=== PATIENT | female | born 1935 ===

== ENCOUNTER 2019-10-27 10:49 | Observation (INO) | payer MEDICARE, OTHER ==
[~2019-10-27] VITALS: Ht 160 cm; Wt 63.6 kg
[2019-10-27] MEDS ORDERED: MULT-464 PO (12:14)
[2019-10-27] MEDS ORDERED: DILT60TA30 PO (12:14)
[2019-10-27] MEDS ORDERED: CALC-534 PO (12:14)
[2019-10-27] MEDS ORDERED: ACET325C6 PO (12:14)
[2019-10-27] MEDS ORDERED: MONT10TA11 PO (12:14)
[2019-10-27] MEDS ORDERED: GABA300C PO (12:14)
[2019-10-27] MEDS ORDERED: APIX5TAB PO (12:14)
[2019-10-27] MEDS ORDERED: TIOT18CA INH (12:14)
[2019-10-27] MEDS ORDERED: BECL10.62 INH (12:14)
[2019-10-27] MEDS ORDERED: CETI10TA18 PO (12:14)
[2019-10-27] MEDS ORDERED: FLUT9.9S INH (12:21)
[2019-10-27] MEDS: SODIUM CHLORIDE 0.9% 1,000 ML IV SCH ×2 (12:32→20:25)
[2019-10-27 12:47] VITALS: BP 155/73
[2019-10-27] MEDS ORDERED: VANCOMYCIN PMX 1GM/200ML 200 ML IVPB SCH (13:00)
[2019-10-27] MEDS ORDERED: VANCOMYCIN PMX 1GM/200ML 200 ML ONE (13:20)
[2019-10-27] MEDS ORDERED: VANCOMYCIN 500 MG ONE (13:20)
[2019-10-27] MEDS ORDERED: LIDOCAINE 1%, 20ML ONE ×2 (13:20→15:17)
[2019-10-27] MEDS ORDERED: FENTANYL PF 250 MCG/5ML ONE (13:25)
[2019-10-27] MEDS ORDERED: DEXAMETHASONE 4 MG/ML, 1ML ONE ×2 (13:25→13:29)
[2019-10-27 13:28] LABS: BASOPHILS # (AUTO) 0.09 x10^3/uL (0-0.1); BASOPHILS % (AUTO) 1 % (0-1); EOSINOPHILS # (AUTO) 0.15 x10^3/uL (0-0.4); EOSINOPHILS % (AUTO) 2 % (1-7); LYMPHOCYTES % (AUTO) 24 % (22-44); MD NO; MEAN CORPUSCULAR HGB CONC 32.1 g/dL (32.4-35.8); MEAN CORPUSCULAR VOLUME 84.2 fL (80-100); MEAN PLATELET VOLUME 7.7 fL (7.4-10.4); MONOCYTES # (AUTO) 0.76 x10^3/uL (0.2-0.8); MONOCYTES % (AUTO) 10 % (2-9); NEUTROPHILS # (AUTO) 4.95 x10^3/uL (1.8-6.8); NEUTROPHILS % (AUTO) 63 % (42-75); PLATELET COUNT 542 x10^3/uL (130-400); RED BLOOD COUNT 4.22 x10^6/uL (3.82-5.3)
[2019-10-27] MEDS ORDERED: EPHEDRINE 50 MG/ML, 1ML ONE (13:29)
[2019-10-27 13:35] LABS: INTERNATIONAL NORMALIZED RATIO 0.94 (0.93-1.1)
[2019-10-27 13:38] LABS: ANION GAP 7 mmol/L (5-15); CALCIUM 9.1 mg/dL (8.5-10.1); CHLORIDE 101 mmol/L (98-107); CREATININE 0.72 mg/dL (0.55-1.02)
[2019-10-27] MEDS ORDERED: ONDANSETRON 2MG/ML, 2ML ONE (14:57)
[2019-10-27] MEDS ORDERED: PROPOFOL 10 MG/ML, 20ML ONE (14:57)
[2019-10-27] MEDS ORDERED: ROCURONIUM 10MG/ML,5ML ONE (14:57)
[2019-10-27] MEDS ORDERED: SUCCINYLCHOLINE 20 MG/ML, 10ML ONE (14:57)
[2019-10-27] MEDS ORDERED: SUGAMMADEX 200 MG/2 ML IVPush ONE (14:57)
[2019-10-27] MEDS ORDERED: hydrALAzine 20 MG/ML, 1ML IV PRN (16:00)
[2019-10-27] MEDS ORDERED: PROMETHAZINE 25 MG/ML, 1ML IVPush PRN (16:00)
[2019-10-27] MEDS ORDERED: ALBUTEROL SULFATE 2.5 MG/3 ML NPPB PRN (16:00)
[2019-10-27] MEDS ORDERED: DIAZEPAM 5 MG/ML, 2ML IVPush PRN (16:00)
[2019-10-27] MEDS ORDERED: EPHEDRINE 50 MG/ML, 1ML IVPush PRN (16:00)
[2019-10-27] MEDS ORDERED: HYDROcodone/APAP 5/325 TABLET PO PRN (16:00)
[2019-10-27] MEDS ORDERED: MIDAZOLAM 1 MG/ML, 2ML IV PRN (16:00)
[2019-10-27] MEDS ORDERED: MEPERIDINE/PF 25MG/0.5ML IVPush PRN (16:00)
[2019-10-27] MEDS ORDERED: Hold all anticoagulants for 24 hours MC PRN (16:00)
[2019-10-27] MEDS ORDERED: DIPHENHYDRAMINE 50 MG/ML, 1ML IVPush PRN (16:00)
[2019-10-27] MEDS ORDERED: LABETALOL 5MG/ML, 20ML IV PRN (16:00)
[2019-10-27] MEDS ORDERED: FENTANYL PF 100 MCG/2ML IV PRN (16:00)
[2019-10-27] MEDS ORDERED: HYDROmorphone 1 MG/ML, 1ML INJ IVPush PRN (16:00)
[2019-10-27] MEDS ORDERED: OXYcodone 5 MG/5 ML ORAL.SOL UDC PO PRN (16:00)
[2019-10-27] MEDS ORDERED: PROMETHAZINE 12.5 MG SUPP PR PRN (16:00)
[2019-10-27] MEDS ORDERED: ACETAMINOPHEN 325 MG TABLET PO PRN ×2 (16:00)
[2019-10-27] MEDS ORDERED: ONDANSETRON 2MG/ML, 2ML IVPush PRN (16:00)
[2019-10-27 20:25] VITALS: BP 116/86
[2019-10-27] MEDS ORDERED: GABAPENTIN 300 MG CAPSULE PO SCH (21:00)
[2019-10-27] MEDS ORDERED: SODIUM CHLORIDE FLUSH 10ML SYR IVF SCH (21:00)
[2019-10-27] MEDS ORDERED: MONTELUKAST 10 MG TABLET PO SCH (21:00)
[2019-10-28] MEDS ORDERED: ACETAMINOPHEN 325 MG TABLET ONE (00:33)
[2019-10-28 00:37] VITALS: BP 128/69
[2019-10-28 07:42] VITALS: BP 144/69
[2019-10-28] MEDS ORDERED: GABAPENTIN 300 MG CAPSULE PO SCH (09:00)
[2019-10-28] MEDS ORDERED: TIOTROPIUM BROMIDE 18 MCG/INH INH SCH ×2 (09:00)
[2019-10-28] MEDS ORDERED: ACETAMINOPHEN 325 MG TABLET PO PRN (09:00)
[2019-10-28] MEDS ORDERED: DILTIAZEM CD 180 MG CAP.ER.24H PO SCH ×2 (09:00)
[2019-10-28] MEDS ORDERED: SODIUM CHLORIDE FLUSH 10ML SYR IVF SCH (09:00)
[2019-10-28] MEDS ORDERED: HYDROcodone/APAP 5/325 TABLET PO PRN (09:00)
[2019-10-28] MEDS ORDERED: MONTELUKAST 10 MG TABLET PO SCH (21:00)
== END 2019-10-28 09:35 | disposition home or self-care (01) ==
LOC: CACL 10:49 → EDSTATUS 13:00 → 5SO 16:48 → CACL 16:48 → 5SO 16:48 → DCLOUNGE 10-28 09:25
PROVIDERS: ADMIT Internal Medicine Clinical Cardiac Electrophysiology; ATTEND Internal Medicine Clinical Cardiac Electrophysiology
DX: I48.21 Permanent atrial fibrillation (principal); I44.2 Atrioventricular block, complete; J44.9 Chronic obstructive pulmonary disease, unspecified; I10 Essential (primary) hypertension; F10.10 Alcohol abuse, uncomplicated; Z79.899 Other long term (current) drug therapy; Z03.818 Encounter for observation for suspected exposure to other biological agents ruled out; Z79.01 Long term (current) use of anticoagulants
CPT/HCPCS: 33208; 33225; C1769; C1779; C1887; C1892; C1894; C1900; C2621; G0378; J0330; J1100; J2405; J2704; J3010; J3370; J3490; Q9967; 36415; 71045; 71046; 80048; 85025; 85610; 87635; 93005

== ENCOUNTER 2019-10-29 08:52 | Inpatient (IN) | payer MEDICARE, OTHER ==
[~2019-10-29] VITALS: Ht 160 cm; Wt 65.5 kg
[~2019-10-29 08:52] MED LIST: ACET325C6 PO; APIX5TAB PO; BECL10.62 INH; CALC-534 PO; CETI10TA18 PO; DILT60TA30 PO; FLUT9.9S INH; GABA300C PO; MONT10TA11 PO; MULT-464 PO; TIOT18CA INH
--- NOTE | 2019-10-29 08:54 | NUR ---
Code Neuro called @ 0846 Neurology called @ 0848 Addendum: 10/29/19 at 0901 by FADI Neurology called back @ 0850
[2019-10-29] MEDS ORDERED: SODIUM CHLORIDE FLUSH 10ML SYR IVF ONE (09:00)
--- NOTE | 2019-10-29 09:19 | NUR ---
BIB Ambulance from home-Pt c/o L UE and L LE weakness since [address] Russell at bedside to evaluate pt. Pt A&Ox4, denies pain. 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 Pt states hx a.fib, taking Elliquis. Pt placed in gown, positioned for comfort in bed with warm blanket. Continuous heart, oxygen and BP Monitors applied, all safety measures observed.
--- NOTE | 2019-10-29 09:20 | NUR ---
neurology is at the bedside for assessment
--- NOTE | 2019-10-29 09:34 | NUR ---
i am assuming care of this pt from rian (rn) a this time. sbar report was exchanged at the bedside.
[2019-10-29 09:35] LABS: MEAN CORPUSCULAR HEMOGLOBIN 26.9 pg (27.0-34.8); MEAN CORPUSCULAR HGB CONC 31.2 g/dL (32.4-35.8); MEAN PLATELET VOLUME 7.3 fL (7.4-10.4); PLATELET COUNT 480 x10^3/uL (130-400); RED BLOOD COUNT 3.92 x10^6/uL (3.82-5.3); RED CELL DISTRIBUTION WIDTH 16.7 % (9.6-15.2)
[2019-10-29 09:40] LABS: INTERNATIONAL NORMALIZED RATIO 0.94 (0.93-1.1)
[2019-10-29 09:41] LABS: ALBUMIN 3.5 g/dL (3.4-5.0); ANION GAP 6 mmol/L (5-15); CALCIUM 10.7 mg/dL (8.5-10.1); CHLORIDE 101 mmol/L (98-107); CREATININE 0.76 mg/dL (0.55-1.02)
[2019-10-29 09:45] LABS: TROPONIN I < 0.015 ng/mL (0.000-0.045)
[2019-10-29 10:06] LABS: BASOPHILS # (AUTO) 0.07 x10^3/uL (0-0.1); BASOPHILS % (AUTO) 1 % (0-1); EOSINOPHILS # (AUTO) 0.07 x10^3/uL (0-0.4); EOSINOPHILS % (AUTO) 1 % (1-7); LYMPHOCYTES % (AUTO) 22 % (22-44); MD SCAN; MONOCYTES # (AUTO) 1.12 x10^3/uL (0.2-0.8); MONOCYTES % (AUTO) 10 % (2-9); NEUTROPHILS # (AUTO) 7.85 x10^3/uL (1.8-6.8); NEUTROPHILS % (AUTO) 68 % (42-75)
[2019-10-29] MEDS ORDERED: SODIUM CHLORIDE FLUSH 10ML SYR IVF PRN (10:30)
--- NOTE | 2019-10-29 11:00 | NUR ---
TASK RN: MINI CATH FOR URINE SPECIMAN PERFORMED AFTER EXPLAINING PROCEDURE TO PT. PT MAY WELL. PURE WICK IN PLACE.
--- NOTE | 2019-10-29 11:09 | NUR ---
verbal sbar exchanged madison tyler (emily) ion the med tele floor. we will begin to prepare for transport at this time.
[2019-10-29 11:15] LABS: MICROSCOPIC NOT IND
--- NOTE | 2019-10-29 11:17 | NUR ---
hospitalist is at the bedside for consult
[2019-10-29] MEDS ORDERED: LABETALOL 5MG/ML, 20ML IV PRN (12:00)
[2019-10-29] MEDS ORDERED: DOCUSATE 100 MG CAPSULE PO PRN (12:00)
[2019-10-29] MEDS ORDERED: ONDANSETRON 4 MG TABLET PO PRN (12:00)
[2019-10-29 12:07] VITALS: BP 156/84
[2019-10-29 12:17] VITALS: BP 156/84
[2019-10-29] MEDS: APIXABAN 5 MG TABLET PO SCH ×2 (12:48→20:36)
[2019-10-29 14:35] VITALS: BP 152/82
[2019-10-29 19:00] VITALS: BP 117/74
[2019-10-29] MEDS: ATORVASTATIN 80 MG TABLET PO SCH (20:36)
[2019-10-29] MEDS: GABAPENTIN 300 MG CAPSULE PO SCH (20:36)
[2019-10-29] MEDS: MONTELUKAST 10 MG TABLET PO SCH (20:36)
[2019-10-29] MEDS ORDERED: BECLOMETHASONE DIPROPIONATE INH SCH (21:00)
[2019-10-29] MEDS ORDERED: OMNIPAQUE 350 MG/ML, 100ML BOTTLE ONE (21:38)
[2019-10-29] MEDS: ONDANSETRON 2MG/ML, 2ML IVPush PRN (21:47)
[2019-10-29 22:11] VITALS: BP 152/81
[2019-10-30] VITALS (8 sets, daily range): BP systolic 114–138; BP diastolic 63–81
[2019-10-30 06:24] LABS: BASOPHILS # (AUTO) 0.01 x10^3/uL (0-0.1); BASOPHILS % (AUTO) 0 % (0-1); EOSINOPHILS % (AUTO) 2 % (1-7); LYMPHOCYTES # (AUTO) 1.12 x10^3/uL (1-3.4); LYMPHOCYTES % (AUTO) 10 % (22-44); MD NO; MEAN CORPUSCULAR HEMOGLOBIN 27.3 pg (27.0-34.8); MEAN CORPUSCULAR HGB CONC 32.1 g/dL (32.4-35.8); MEAN PLATELET VOLUME 7.6 fL (7.4-10.4); MONOCYTES # (AUTO) 0.94 x10^3/uL (0.2-0.8); MONOCYTES % (AUTO) 8 % (2-9); NEUTROPHILS # (AUTO) 8.92 x10^3/uL (1.8-6.8); NEUTROPHILS % (AUTO) 80 % (42-75); PLATELET COUNT 426 x10^3/uL (130-400); RED BLOOD COUNT 3.84 x10^6/uL (3.82-5.3); RED CELL DISTRIBUTION WIDTH 17.1 % (9.6-15.2)
[2019-10-30 06:26] LABS: ALBUMIN 2.9 g/dL (3.4-5.0); CALCIUM 7.8 mg/dL (8.5-10.1); CHLORIDE 97 mmol/L (98-107)
[2019-10-30 06:32] LABS: ALANINE AMINOTRANSFERASE 31 U/L (12-78); ALKALINE PHOSPHATASE 118 U/L (45-117); BILIRUBIN,TOTAL 0.4 mg/dL (0.2-1.0); CHOL/HDL RATIO 2.3; CHOLESTEROL, TOTAL 198 mg/dL (140-239); CREATININE 0.66 mg/dL (0.55-1.02); HDL CHOL % 44 % (28-40); HDL CHOLESTEROL (DIRECT) 88 mg/dL (40-60); LDL CHOLESTEROL,CALCULATED 95 mg/dL (54-169); LDL/HDL RATIO 1.1 (0.5-3.0); TOTAL PROTEIN 6.6 g/dL (6.4-8.2); TRIGLYCERIDES 76 mg/dL (50-200); VLDL CHOLESTEROL 15 mg/dL (0-25)
[2019-10-30 07:13] LABS: ANION GAP 9 mmol/L (5-15)
[2019-10-30] MEDS ORDERED: BISACODYL 10 MG SUPP PR PRN (08:30)
[2019-10-30] MEDS ORDERED: POLYETHYLENE GLYCOL 17 GM PACKET PO PRN (08:30)
[2019-10-30] MEDS: ONDANSETRON 2MG/ML, 2ML IVPush PRN (08:47)
[2019-10-30] MEDS ORDERED: ASPIRIN 81 MG TABLET CHEW PO/NG SCH (09:00)
[2019-10-30] MEDS ORDERED: CALCIUM/VITAMIN D3 250-125 TABLET PO SCH (09:00)
[2019-10-30] MEDS: CETIRIZINE 10 MG TABLET PO SCH (09:39)
[2019-10-30] MEDS: SENNA/DOCUSATE TABLET PO SCH (09:39)
[2019-10-30] MEDS: GABAPENTIN 300 MG CAPSULE PO SCH ×2 (09:39→21:36)
[2019-10-30] MEDS: APIXABAN 5 MG TABLET PO SCH ×2 (09:39→21:36)
[2019-10-30] MEDS: MULTIVITAMINS/MINERALS TABLET PO SCH (09:40)
[2019-10-30] MEDS: DILTIAZEM CD 180 MG CAP.ER.24H PO SCH (09:40)
[2019-10-30] MEDS: CALCIUM/VITAMIN D3 250-125 TABLET PO SCH (10:56)
[2019-10-30] MEDS: TIOTROPIUM BROMIDE 18 MCG/INH INH SCH (10:57)
[2019-10-30] MEDS: FLUTICASONE FUROATE 100MCG/INH INH SCH (10:57)
[2019-10-30] MEDS: FLUTICASONE NASAL SPRAY 16GM NAS SCH (10:59)
[2019-10-30] MEDS: MONTELUKAST 10 MG TABLET PO SCH (21:36)
[2019-10-30] MEDS: ATORVASTATIN 80 MG TABLET PO SCH (21:36)
[2019-10-31 00:27] VITALS: BP 111/54
[2019-10-31] MEDS: ACETAMINOPHEN 650 MG/20.3 ML UDC PO PRN ×2 (04:02→20:04)
[2019-10-31 05:00] LABS: BASOPHILS # (AUTO) 0.01 x10^3/uL (0-0.1); BASOPHILS % (AUTO) 0 % (0-1); EOSINOPHILS # (AUTO) 0.29 x10^3/uL (0-0.4); EOSINOPHILS % (AUTO) 3 % (1-7); LYMPHOCYTES # (AUTO) 2.15 x10^3/uL (1-3.4); LYMPHOCYTES % (AUTO) 23 % (22-44); MD NO; MEAN CORPUSCULAR HEMOGLOBIN 27.4 pg (27.0-34.8); MEAN CORPUSCULAR HGB CONC 32.4 g/dL (32.4-35.8); MEAN PLATELET VOLUME 7.4 fL (7.4-10.4); MONOCYTES # (AUTO) 1.13 x10^3/uL (0.2-0.8); MONOCYTES % (AUTO) 12 % (2-9); NEUTROPHILS # (AUTO) 5.89 x10^3/uL (1.8-6.8); NEUTROPHILS % (AUTO) 62 % (42-75); PLATELET COUNT 411 x10^3/uL (130-400); RED CELL DISTRIBUTION WIDTH 16.8 % (9.6-15.2)
[2019-10-31 05:10] LABS: ANION GAP 3 mmol/L (5-15); CALCIUM 8.3 mg/dL (8.5-10.1); CHLORIDE 102 mmol/L (98-107)
[2019-10-31 06:27] VITALS: BP 133/67
[2019-10-31] MEDS: TIOTROPIUM BROMIDE 18 MCG/INH INH SCH (08:45)
[2019-10-31] MEDS: SENNA/DOCUSATE TABLET PO SCH (08:46)
[2019-10-31] MEDS: DILTIAZEM CD 180 MG CAP.ER.24H PO SCH (08:46)
[2019-10-31] MEDS: CALCIUM/VITAMIN D3 250-125 TABLET PO SCH (08:46)
[2019-10-31] MEDS: FLUTICASONE FUROATE 100MCG/INH INH SCH (08:46)
[2019-10-31] MEDS: FLUTICASONE NASAL SPRAY 16GM NAS SCH (08:46)
[2019-10-31] MEDS: GABAPENTIN 300 MG CAPSULE PO SCH ×2 (08:46→20:04)
[2019-10-31] MEDS: MULTIVITAMINS/MINERALS TABLET PO SCH (08:46)
[2019-10-31] MEDS: APIXABAN 5 MG TABLET PO SCH ×2 (08:46→20:04)
[2019-10-31] MEDS: CETIRIZINE 10 MG TABLET PO SCH (08:47)
[2019-10-31] MEDS: CHOLECALCIFEROL 5,000u TAB PO SCH (08:47)
[2019-10-31] MEDS ORDERED: MAGNESIUM SULFATE/D5W 100 ML IV ONE (09:30)
[2019-10-31] MEDS ORDERED: POTASSIUM CHLORIDE 20 MEQ TAB.ER.PRT PO ONE (09:30)
[2019-10-31 15:01] VITALS: BP 149/77
[2019-10-31 20:00] VITALS: BP 122/71
[2019-10-31] MEDS: ATORVASTATIN 80 MG TABLET PO SCH (20:04)
[2019-10-31] MEDS: MONTELUKAST 10 MG TABLET PO SCH (20:04)
[2019-11-01] MEDS: ACETAMINOPHEN 650 MG/20.3 ML UDC PO PRN (01:30)
[2019-11-01] MEDS: DIPHENHYDRAMINE/ZINC CRM 2%, 30GM TP PRN ×2 (01:30→09:26)
[2019-11-01 01:37] VITALS: BP 115/75
[2019-11-01 05:59] LABS: ANION GAP 4 mmol/L (5-15); CALCIUM 8.4 mg/dL (8.5-10.1); CHLORIDE 104 mmol/L (98-107); CREATININE 0.61 mg/dL (0.55-1.02)
[2019-11-01 07:16] VITALS: BP 137/75
[2019-11-01] MEDS: FLUTICASONE NASAL SPRAY 16GM NAS SCH (07:53)
[2019-11-01] MEDS: MULTIVITAMINS/MINERALS TABLET PO SCH (07:53)
[2019-11-01] MEDS: DILTIAZEM CD 180 MG CAP.ER.24H PO SCH (07:53)
[2019-11-01] MEDS: GABAPENTIN 300 MG CAPSULE PO SCH (07:53)
[2019-11-01] MEDS: FLUTICASONE FUROATE 100MCG/INH INH SCH (07:53)
[2019-11-01] MEDS: TIOTROPIUM BROMIDE 18 MCG/INH INH SCH (07:53)
[2019-11-01] MEDS: CALCIUM/VITAMIN D3 250-125 TABLET PO SCH (07:54)
[2019-11-01] MEDS: CETIRIZINE 10 MG TABLET PO SCH (07:54)
[2019-11-01] MEDS: SENNA/DOCUSATE TABLET PO SCH (07:54)
[2019-11-01] MEDS: CHOLECALCIFEROL 5,000u TAB PO SCH (07:54)
[2019-11-01] MEDS: APIXABAN 5 MG TABLET PO SCH (07:54)
[2019-11-01 12:46] VITALS: BP 121/65
[2019-11-01] MEDS ORDERED: CALC1TAB68 PO (13:53)
== END 2019-11-01 15:42 | disposition home health service (06) | DRG 65 ==
LOC: ED 09:23 → EDIP 10:15 → 4WST 12:04 → DCLOUNGE 11-01 15:33
PROVIDERS: ADMIT Hospitalist; ATTEND Hospitalist
PROC: 0T9B70Z Drainage of Bladder with Drainage Device, Via Natural or Artificial Opening (ICD-10-PCS; principal; 2019-10-29)
DX: I63.9 Cerebral infarction, unspecified (principal); G81.94 Hemiplegia, unspecified affecting left nondominant side; J96.11 Chronic respiratory failure with hypoxia; E87.1 Hypo-osmolality and hyponatremia; D68.59 Other primary thrombophilia; J44.9 Chronic obstructive pulmonary disease, unspecified; I48.91 Unspecified atrial fibrillation; H70.92 Unspecified mastoiditis, left ear; E83.52 Hypercalcemia; I70.0 Atherosclerosis of aorta; K59.00 Constipation, unspecified; Z79.01 Long term (current) use of anticoagulants; Z82.3 Family history of stroke; Z87.891 Personal history of nicotine dependence; Z88.2 Allergy status to sulfonamides; R29.701 NIHSS score 1; Z90.710 Acquired absence of both cervix and uterus; Z95.0 Presence of cardiac pacemaker; Z88.0 Allergy status to penicillin; Z90.49 Acquired absence of other specified parts of digestive tract; Z90.89 Acquired absence of other organs; J30.9 Allergic rhinitis, unspecified; Z72.89 Other problems related to lifestyle; Z88.1 Allergy status to other antibiotic agents; Z88.8 Allergy status to other drugs, medicaments and biological substances
CPT/HCPCS: 33208; 33225; 36415; 70450; 70496; 70498; 71045; 71046; 74018; 80048; 80053; 80061; 81003; 82040; 82306; 82330; 83735; 83970; 84100; 84443; 84484; 85025; 85610; 85730; 87635; 93005; 93306; 96374; 99285; C1769; C1779; C1887; C1892; C1894; C2621; G0378; J1100; J2405; J2704; J3010; J3370; Q9967; 92523-GN; C1900; J0330

== ENCOUNTER 2019-12-03 09:03 | Observation (INO) | payer MEDICARE, OTHER ==
[~2019-12-03] VITALS: Ht 160 cm; Wt 64.3 kg
[~2019-12-03 09:03] MED LIST changes: +CALC1TAB68 PO
[2019-12-03] MEDS ORDERED: LIDOCAINE 2%, 20ML ONE (10:08)
[2019-12-03] MEDS ORDERED: FENTANYL PF 100 MCG/2ML ONE (10:08)
[2019-12-03] MEDS ORDERED: MIDAZOLAM 1 MG/ML, 5ML ONE (10:08)
[2019-12-03] MEDS ORDERED: VANCOMYCIN PMX 1GM/200ML 200 ML ONE (10:09)
[2019-12-03] MEDS ORDERED: VANCOMYCIN 500 MG ONE (10:09)
[2019-12-03] MEDS ORDERED: SODIUM CHLORIDE 0.9% 1,000 ML IV SCH (10:10)
[2019-12-03] MEDS ORDERED: FLUT1AER INH (10:27)
[2019-12-03 10:30] VITALS: BP 150/76
[2019-12-03 10:55] LABS: ANION GAP 6 mmol/L (5-15); CALCIUM 9.4 mg/dL (8.5-10.1); CHLORIDE 104 mmol/L (98-107)
[2019-12-03 10:57] LABS: CREATININE 0.74 mg/dL (0.55-1.02)
[2019-12-03 11:00] LABS: BASOPHILS # (AUTO) 0.05 x10^3/uL (0-0.1); BASOPHILS % (AUTO) 1 % (0-1); EOSINOPHILS # (AUTO) 0.13 x10^3/uL (0-0.4); EOSINOPHILS % (AUTO) 2 % (1-7); LYMPHOCYTES # (AUTO) 1.49 x10^3/uL (1-3.4); LYMPHOCYTES % (AUTO) 20 % (22-44); MD NO; MEAN CORPUSCULAR HEMOGLOBIN 26.6 pg (27.0-34.8); MEAN CORPUSCULAR HGB CONC 31.2 g/dL (32.4-35.8); MEAN CORPUSCULAR VOLUME 85.3 fL (80-100); MEAN PLATELET VOLUME 7.3 fL (7.4-10.4); MONOCYTES # (AUTO) 0.59 x10^3/uL (0.2-0.8); MONOCYTES % (AUTO) 8 % (2-9); NEUTROPHILS # (AUTO) 5.04 x10^3/uL (1.8-6.8); NEUTROPHILS % (AUTO) 69 % (42-75); PLATELET COUNT 451 x10^3/uL (130-400); RED BLOOD COUNT 4.08 x10^6/uL (3.82-5.3); RED CELL DISTRIBUTION WIDTH 18.4 % (9.6-15.2)
[2019-12-03] MEDS ORDERED: HOLD MEDICATION MC PRN (12:30)
[2019-12-03] MEDS ORDERED: FUROSEMIDE 40 MG/4 ML ONE (12:38)
[2019-12-03] MEDS ORDERED: ALBU18HF INH (12:58)
[2019-12-03] MEDS: ALBUTEROL HFA 90 MCG/SPRAY INH PRN ×2 (13:10→20:38)
[2019-12-03] MEDS ORDERED: ACETAMINOPHEN 325 MG TABLET ONE (13:16)
[2019-12-03 19:51] VITALS: BP 130/69
[2019-12-03] MEDS ORDERED: GABAPENTIN 300 MG CAPSULE PO SCH (21:00)
[2019-12-03] MEDS ORDERED: MONTELUKAST 10 MG TABLET PO SCH (21:00)
[2019-12-03] MEDS ORDERED: SODIUM CHLORIDE FLUSH 10ML SYR IVF SCH (21:00)
[2019-12-04 00:50] VITALS: BP 139/78
[2019-12-04 07:45] VITALS: BP 135/75
[2019-12-04 07:55] VITALS: BP 123/70
[2019-12-04] MEDS ORDERED: TIOTROPIUM BROMIDE 18 MCG/INH INH SCH (09:00)
[2019-12-04] MEDS ORDERED: DILTIAZEM CD 180 MG CAP.ER.24H PO SCH (09:00)
[2019-12-04] MEDS ORDERED: FLUTICASONE/VILANTEROL 100-25MCG/INH INH SCH (09:00)
[2019-12-04] MEDS ORDERED: APIXABAN 5 MG TABLET PO SCH (12:00)
== END 2019-12-04 18:22 | disposition home or self-care (01) ==
LOC: CACL 09:03 → ORIP 12:27 → 5SO 16:58
PROVIDERS: ADMIT Internal Medicine Clinical Cardiac Electrophysiology; ATTEND Internal Medicine Clinical Cardiac Electrophysiology
DX: I48.21 Permanent atrial fibrillation (principal); T82.110A Breakdown (mechanical) of cardiac electrode, initial encounter; J44.9 Chronic obstructive pulmonary disease, unspecified; I10 Essential (primary) hypertension; Z79.899 Other long term (current) drug therapy; Z79.01 Long term (current) use of anticoagulants; Z88.0 Allergy status to penicillin; Z88.2 Allergy status to sulfonamides
CPT/HCPCS: 33215; 36415; 71045; 80048; 85025; 99156; 99157; G0378; J1940; J2250; J3010; J3370; J3490

== ENCOUNTER 2020-02-23 08:34 | Observation (INO) | payer MEDICARE, OTHER ==
[~2020-02-23] VITALS: Ht 160 cm; Wt 61.4 kg
[~2020-02-23 08:34] MED LIST changes: +ALBU18HF INH; +FLUT1AER INH
[2020-02-23] MEDS ORDERED: SODIUM CHLORIDE 0.9% 1,000 ML IV SCH (09:00)
[2020-02-23] MEDS ORDERED: FENTANYL PF 100 MCG/2ML ONE (09:14)
[2020-02-23] MEDS ORDERED: MIDAZOLAM 1 MG/ML, 2ML ONE (09:14)
[2020-02-23] MEDS ORDERED: LIDOCAINE 1%, 20ML ONE (09:14)
[2020-02-23 09:19] VITALS: BP 136/71
[2020-02-23 09:23] LABS: BASOPHILS % (AUTO) 1 % (0-1); EOSINOPHILS % (AUTO) 1 % (1-7); LYMPHOCYTES % (AUTO) 13 % (22-44); MEAN CORPUSCULAR HEMOGLOBIN 24.9 pg (27.0-34.8); MEAN CORPUSCULAR HGB CONC 31.8 g/dL (32.4-35.8); MONOCYTES % (AUTO) 13 % (2-9); NEUTROPHILS % (AUTO) 73 % (42-75); PLATELET COUNT 587 x10^3/uL (130-400); RED BLOOD COUNT 3.84 x10^6/uL (3.82-5.3); RED CELL DISTRIBUTION WIDTH 17.5 % (9.6-15.2)
[2020-02-23 09:24] LABS: MD NO
[2020-02-23] MEDS ORDERED: estradiol (09:25)
[2020-02-23] MEDS ORDERED: FURO20TA3 PO (09:25)
[2020-02-23] MEDS ORDERED: POTA10TA6 PO (09:25)
[2020-02-23 09:34] LABS: ANION GAP 10 mmol/L (5-15); CALCIUM 9.2 mg/dL (8.5-10.1); CHLORIDE 105 mmol/L (98-107)
[2020-02-23 11:00] VITALS: BP 119/66
[2020-02-23] MEDS ORDERED: ONDANSETRON 2MG/ML, 2ML IVPush PRN (11:00)
[2020-02-23] MEDS ORDERED: ALBUTEROL HFA 90 MCG/SPRAY INH PRN (11:00)
[2020-02-23 13:20] VITALS: BP 118/78
[2020-02-23] MEDS: APIXABAN 5 MG TABLET PO SCH ×2 (13:47→20:47)
[2020-02-23] MEDS ORDERED: ACETAMINOPHEN 325 MG TABLET PO PRN (16:00)
[2020-02-23 18:51] VITALS: BP 116/69
[2020-02-23] MEDS: GABAPENTIN 300 MG CAPSULE PO SCH (20:47)
[2020-02-23] MEDS ORDERED: MONTELUKAST 10 MG TABLET PO SCH (21:00)
[2020-02-24] MEDS ORDERED: ALBUTEROL HFA 90 MCG/SPRAY INH PRN (01:00)
[2020-02-24 01:11] VITALS: BP 135/74
[2020-02-24 06:58] VITALS: BP 117/65
[2020-02-24] MEDS: FUROSEMIDE 20 MG TABLET PO SCH ×2 (09:00→10:28)
[2020-02-24] MEDS ORDERED: POTASSIUM CHLORIDE 10 MEQ TABLET.ER PO SCH (09:00)
[2020-02-24] MEDS ORDERED: DILTIAZEM CD 180 MG CAP.ER.24H PO SCH (09:00)
[2020-02-24] MEDS ORDERED: CETIRIZINE 10 MG TABLET PO SCH (09:00)
[2020-02-24] MEDS ORDERED: FUROSEMIDE 20 MG/2 ML IV ONE (09:00)
[2020-02-24] MEDS ORDERED: FLUTICASONE/VILANTEROL 100-25MCG/INH INH SCH (09:00)
[2020-02-24] MEDS ORDERED: TIOTROPIUM BROMIDE 18 MCG/INH INH SCH (09:00)
[2020-02-24] MEDS: GABAPENTIN 300 MG CAPSULE PO SCH (09:38)
[2020-02-24] MEDS: APIXABAN 5 MG TABLET PO SCH (09:38)
[2020-02-24] MEDS ORDERED: FURO20TA3 PO (10:26)
== END 2020-02-24 12:15 | disposition home or self-care (01) ==
LOC: CACL 08:34 → ORIP 10:58 → 5SO 10:59 → CACL 11:04 → 5SO 12:09 → DCLOUNGE 02-24 12:09
PROVIDERS: ADMIT Internal Medicine Clinical Cardiac Electrophysiology; ATTEND Internal Medicine Clinical Cardiac Electrophysiology
DX: I48.21 Permanent atrial fibrillation (principal); T82.110A Breakdown (mechanical) of cardiac electrode, initial encounter; I10 Essential (primary) hypertension; J44.9 Chronic obstructive pulmonary disease, unspecified; Z95.0 Presence of cardiac pacemaker; Z79.899 Other long term (current) drug therapy; Z79.01 Long term (current) use of anticoagulants; Z88.0 Allergy status to penicillin
CPT/HCPCS: 36415; 80048; 85025; 93650; 96374; 99156; 99157; C2630; G0378; J1940; J2250; J3010; J3490

== ENCOUNTER 2020-04-04 14:35 | Emergency (ER) | payer MEDICARE, OTHER ==
[~2020-04-04] VITALS: Ht 160 cm; Wt 60.5 kg
[~2020-04-04 14:35] MED LIST changes: +FURO20TA3 PO; -MONT10TA11 PO; +MONT10TA96 PO; +POTA10TA6 PO; +estradiol
--- NOTE | 2020-04-04 15:01 | NUR ---
BREAK RN: DR CHARLES AT BEDSIDE, PT ASSESSMENT, POC DISCUSSED AND QUESTIONS ANSWERED. PT RATES PAIN 4/10, VERBALIZES "IT'S A LOT BETTER THAN IT WAS" VSS, CALL LIGHT W/I REACH
--- NOTE | 2020-04-04 15:17 | NUR ---
BREAK RN: PT TO RADIOLOGY WITH TECH TRANSPORT
[2020-04-04 15:24] LABS: BASOPHILS % (AUTO) 1 % (0-1); EOSINOPHILS % (AUTO) 1 % (1-7); LYMPHOCYTES % (AUTO) 8 % (22-44); MEAN CORPUSCULAR HEMOGLOBIN 24.5 pg (27.0-34.8); MEAN CORPUSCULAR HGB CONC 32.1 g/dL (32.4-35.8); MEAN PLATELET VOLUME 7.1 fL (7.4-10.4); MONOCYTES % (AUTO) 9 % (2-9); NEUTROPHILS % (AUTO) 82 % (42-75); PLATELET COUNT 464 x10^3/uL (130-400); RED CELL DISTRIBUTION WIDTH 19.7 % (9.6-15.2)
[2020-04-04 15:27] LABS: MD NO
[2020-04-04] MEDS ORDERED: HYDROmorphone 1 MG/ML, 1ML INJ IVPush PRN (15:30)
[2020-04-04] MEDS ORDERED: SODIUM CHLORIDE 0.9% 1,000ML IVBOLUS ONE (15:30)
[2020-04-04] MEDS ORDERED: SODIUM CHLORIDE FLUSH 10ML SYR IVF ONE (15:30)
[2020-04-04 15:46] LABS: ALANINE AMINOTRANSFERASE 25 U/L (12-78); ALBUMIN 3.3 g/dL (3.4-5.0); ANION GAP 5 mmol/L (5-15); CALCIUM 9.1 mg/dL (8.5-10.1); CHLORIDE 100 mmol/L (98-107); CREATININE 0.91 mg/dL (0.55-1.02)
[2020-04-04 15:48] LABS: ALKALINE PHOSPHATASE 122 U/L (45-117); BILIRUBIN,TOTAL 0.6 mg/dL (0.2-1.0); TOTAL PROTEIN 7.4 g/dL (6.4-8.2)
--- NOTE | 2020-04-04 15:59 | NUR ---
Pt sleeping, visible chest rise and fall.
[2020-04-04 17:29] VITALS: BP 104/40
== END 2020-04-04 17:32 | disposition home or self-care (01) ==
LOC: ED 16:30
DX: M54.5 Low back pain (principal); R07.89 Other chest pain; R51.9 Headache, unspecified; Z88.0 Allergy status to penicillin; Z88.9 Allergy status to unspecified drugs, medicaments and biological substances; V49.59XA Passenger injured in collision with other motor vehicles in traffic accident, initial encounter; Y93.89 Activity, other specified; Y92.488 Other paved roadways as the place of occurrence of the external cause; Y99.8 Other external cause status
CPT/HCPCS: 36415; 71046; 80053; 83880; 85025; 99284; J7030

== ENCOUNTER → 2020-12-22 | Outpatient (CLI) | payer MEDICARE, OTHER ==
[~2020-12-22] MED LIST changes: +MONT10TA17 PO; -MONT10TA96 PO; +REGADENOSON 0.4 MG/5 ML SYRINGE ONE
== END | disposition home or self-care (01) ==
LOC: CFH 07:56
PROVIDERS: ATTEND Physician Assistant Medical
DX: R07.9 Chest pain, unspecified (principal); R06.00 Dyspnea, unspecified
CPT/HCPCS: 78452; 93017; A9502; J2785